=== PATIENT | female | born 1950 | race Caucasian/White ===

== ENCOUNTER 2020-08-29 15:42 | Inpatient (IN) | payer MEDICARE, OTHER ==
[~2020-08-29] VITALS: Ht 165.1 cm; Wt 52.8 kg
[2020-08-29] MEDS ORDERED: LEVO75TA4 PO (15:58)
[2020-08-29] MEDS ORDERED: QUET1TAB7 PO (15:58)
[2020-08-29] MEDS ORDERED: DIVA250T67 PO (15:58)
[2020-08-29] MEDS ORDERED: ESCI10TA2 PO (15:58)
[2020-08-29 16:36] LABS: BASO # 0.1 10^3/uL (0.0-0.2); BASO % 0.9 % (0.0-1.0); EOS # 0.1 10^3/uL (0.0-0.5); EOS % 0.7 % (0.0-3.0); HEMATOCRIT 39.1 % (36.0-47.0); HEMOGLOBIN 12.6 g/dl (12.0-15.5); LYMPH % 24.1 % (24.0-44.0); MEAN CORPUSCULAR HEMOGLOBIN 29.3 pg (27.0-33.0); MEAN CORPUSCULAR HGB CONC 32.2 g/dl (32.0-36.5); MEAN CORPUSCULAR VOLUME 90.9 fl (80.0-96.0); MONO # 0.8 10^3/uL (0.0-0.8); NEUTROPHILS # 5.3 10^3/uL (1.5-8.5); NEUTROPHILS % 64.1 % (36.0-66.0); PLATELET COUNT, AUTOMATED 321 10^3/uL (150-450); WHITE BLOOD COUNT 8.2 10^3/uL (4.0-10.0)
[2020-08-29 17:07] LABS: ALBUMIN 3.8 GM/DL (3.2-5.2); ALT/SGPT 17 U/L (12-78); BILIRUBIN,DIRECT 0.2 MG/DL (0.0-0.2); BILIRUBIN,TOTAL 0.8 MG/DL (0.2-1.0); BLOOD UREA NITROGEN 23 MG/DL (7-18); CALCIUM LEVEL 8.9 MG/DL (8.8-10.2); CARBON DIOXIDE LEVEL 31 MEQ/L (21-32); CHLORIDE LEVEL 108 MEQ/L (98-107); ETHYL ALCOHOL (ETHANOL) < 0.003 % (0.000-0.010); GLOMERULAR FILTRATION RATE > 60.0 (>39); GLUCOSE, FASTING 90 MG/DL (70-100); POTASSIUM SERUM 3.7 MEQ/L (3.5-5.1); SODIUM LEVEL 143 MEQ/L (136-145)
[2020-08-29 17:46] LABS: VALPROIC ACID (DEPAKOTE) 51.8 UG/ML (50.0-100.0)
--- NOTE | 2020-08-29 18:17 | HPEPDOC ---
[facility] Medical History & Physical Date of Admission Aug 29, 2020 Date of Service: Aug 29, 2020 History and Physical CHIEF COMPLAINT: advanced dementia HISTORY OF PRESENT ILLNESS: 69 yo F with a hx of advanced Alzheimer's dementia and hypothyroidism, was brought to ED by daughter for assistance with placement to SNF. Patient is unable to provide history due to advanced dementia; she is oriented only to person. Her daughter (Sade) is at bedside. She reports family and PCP trying for appropriate placement. She has been seen by geriatrics service in [place], Dr. Mikie Landeros. Per daughter, patient has a telephone scre ening for admission to [facility], plan was for direct admission in next few days. Today however, patient attempted to jump from a moving vehicle, and has displayed worsening aggressive behaviour toward family and even nursing staff in the ER. [facility] suggested to daughter, to bring patient to ER. Per ED staff, no bed was available at [facility]. Will admit for PFS assistance with placement. PAST MEDICAL HISTORY: 1. Advanced Alzheimer's dementia 2. Hypothyroidism PAST SURGICAL HISTORY: Reviewed with patient and family, no pertinent history identified. SOCIAL HISTORY: Patient unable to verbalize, however, daughter reports no smoking, alcohol use or illicit drug use Lives in private residence with her FAMILY HISTORY: Reviewed with patient and daughter, no pertinent history identified ALLERGIES: Please see below. REVIEW OF SYSTEMS: Complete review of systems unable to be performed as patient has advanced dementia, however, daughter reports no new complaints from mother in the last few days HOME MEDICATIONS: Please see below. PHYSICAL EXAMINATION: VITAL SIGNS: please see below General: NAD, comfortable HEENT: PERRLA, EOMI, sclerae clear Neck: supple, normal ROM, no JVD Respiratory: lungs CTAB, no wheeze, no rales, no crackles CVS: RRR, normal S1, S2, no murmurs Abdo: soft, no masses, no hepatosplenomegaly, BS+, no rebound tenderness Extremities: no edema, pulses 2+ MSK: no joint deformities, normal ROM Neuro: no focal neuro deficits, moving all 4 extremities Psych: calm, cooperative, AAO x 1 LABORATORY DATA: See below. MICROBIOLOGY: Please see below. ASSESSMENT: 69-year-old female with a history of advanced Alzheimer's dementia and hypothyroidism, admitted for social work assistance with placement to SNF. . PLAN: #Advanced Alzheimer's dementia: Sitter for concern of aggressive behaviour, elopement. Resume Seroquel 25 mg daily, depakote 250 mg BID. Check QTC. #Depression: lexapro 10 mg PO daily. #Hypothyroidism: Resume home medication. Levothyroxine 75 mcg PO daily TSH 0.8. DVT ppx: lovenox Dispo: PFS and case management consult to assist with placement. Discussed with manager social work Paco Lomeli, advised to admit as full admission. Per patient's daug hter, [facility] is completed. Initial screening, and may have a bed available very shortly. We'll request PFS assistance with plan for placement. Vital Signs Vital Signs Date Time Temp Pulse Resp B/P (MAP) Pulse Ox O2 Delivery O2 Flow Rate FiO2 08/29/20 16:36 08/29/20 15:45 98.8 69 18 98 Room Air Laboratory Data Labs 24H Laboratory Tests 2 08/29/20 16:24: Immature Granulocyte % (Auto) 0.2, Neutrophils (%) (Auto) 64.1, Lymphocytes (%) (Auto) 24.1, Monocytes (%) (Auto) 10.0H, Eosinophils (%) (Auto) 0.7, Basophils (%) (Auto) 0.9, Neutrophils # (Auto) 5.3, Lymphocytes # (Auto) 2.0, Monocytes # (Auto) 0.8, Eosinophils # (Auto) 0.1, Basophils # (Auto) 0.1, Nucleated Red Blood Cells % (auto) 0.0, Anion Gap 4L, Glomerular Filtration Rate > 60.0, Calcium Level 8.9, Total Bilirubin 0.8, Direct Bilirubin 0.2, Aspartate Amino Transf (AST/SGOT) 18, Alanine Aminotransferase (ALT/SGPT) 17, Alkaline Phosphatase 53, Total Protein 7.0, Albumin 3.8, Albumin/Globulin Ratio 1.2, Thyroid Stimulating Hormone (TSH) 0.810, Valproic Acid (Depakene) Level 51.8, Ethyl Alcohol Level < 0.003 08/29/20 17:44: CBC/BMP Laboratory Tests 08/29/20 16:24 Home Medications Scheduled Divalproex Sodium (Divalproex Sodium) 250 Mg Tablet.dr, 250 MG PO BID Escitalopram Oxalate (Escitalopram Oxalate) 10 Mg Tablet, 10 MG PO DAILY Levothyroxine Sodium (Levothyroxine Sodium) 75 Mcg Tablet, 75 MCG PO DAILY Quetiapine Fumarate (Quetiapine Fumarate) 25 Mg Tablet, 25 MG PO BID Allergies Coded Allergies: No Known Allergies (Unverified , 08/29/20) A-FIB/CHADSVASC A-FIB History Current/History of A-Fib/PAF?: No Current PO Anticoag Therapy: No ANDREIA MAE MD Aug 29, 2020 18:17
[2020-08-29] MEDS: QUEtiapine FUMARATE 25 MG TAB PO SCH (21:00)
[2020-08-29] MEDS: DIVALPROEX 250 MG TAB PO SCH (21:00)
--- NOTE | 2020-08-29 21:08 | IPNPDOC ---
Date Seen The patient was seen on 08/29/20. Progress Note MOVIE OPERATOR called re: increased agitation and worsening dementia. Pt could not be re-directed, and patient's daughter is giving consent and requests medications to calm her down. plan: prn benadryl and low dose ativan for agitation. VS, I&O, 24H, Fishbone Vital Signs/I&O Vital Signs Date Time Temp Pulse Resp B/P (MAP) Pulse Ox O2 Delivery O2 Flow Rate FiO2 08/29/20 19:56 98.6 66 18 130/72 (91) 96 Room Air Laboratory Data 24H LABS Laboratory Tests 2 08/29/20 16:24: Immature Granulocyte % (Auto) 0.2, Neutrophils (%) (Auto) 64.1, Lymphocytes (%) (Auto) 24.1, Monocytes (%) (Auto) 10.0H, Eosinophils (%) (Auto) 0.7, Basophils (%) (Auto) 0.9, Neutrophils # (Auto) 5.3, Lymphocytes # (Auto) 2.0, Monocytes # (Auto) 0.8, Eosinophils # (Auto) 0.1, Basophils # (Auto) 0.1, Nucleated Red Blood Cells % (auto) 0.0, Anion Gap 4L, Glomerular Filtration Rate > 60.0, Calcium Level 8.9, Total Bilirubin 0.8, Direct Bilirubin 0.2, Aspartate Amino Transf (AST/SGOT) 18, Alanine Aminotransferase (ALT/SGPT) 17, Alkaline Phosphatase 53, Total Protein 7.0, Albumin 3.8, Albumin/Globulin Ratio 1.2, Thyroid Stimulating Hormone (TSH) 0.810, Valproic Acid (Depakene) Level 51.8, Ethyl Alcohol Level < 0.003 08/29/20 17:44: Coronavirus (COVID-19)(PCR) NEGATIVE CBC/BMP Laboratory Tests 08/29/20 16:24 KELSEY MENDENHALL MD Aug 29, 2020 21:08
[2020-08-29] MEDS ORDERED: LORazepam 2 MG/ML VIAL IV PRN (21:15)
[2020-08-29] MEDS ORDERED: diphenhydrAMINE 50MG/ML VIAL (J1200) IV PRN ×2 (21:15)
[2020-08-29 23:05] VITALS: BP 132/66
[2020-08-29] MEDS ORDERED: LORazepam 2 MG/ML VIAL SL PRN (23:30)
[2020-08-30 06:00] VITALS: BP 130/66
[2020-08-30] MEDS: LEVOTHYROXINE 75MCG TABLET (0.075MG) PO SCH (06:18)
[2020-08-30] MEDS: QUEtiapine FUMARATE 25 MG TAB PO SCH (08:02)
[2020-08-30] MEDS: ESCITALOPRAM OXALATE 10 MG TAB (LEXAPRO) PO SCH (08:02)
[2020-08-30] MEDS: LORazepam 0.5 MG TAB PO PRN ×2 (08:02→14:26)
[2020-08-30] MEDS: diphenhydrAMINE 25MG CAP PO PRN ×2 (08:02→14:26)
[2020-08-30] MEDS: DIVALPROEX 250 MG TAB PO SCH ×2 (08:04→20:43)
[2020-08-30] MEDS: ENOXAPARIN 40MG/0.4ML SYRINGE (J1650 PER 10MG) SC SCH (09:00)
--- NOTE | 2020-08-30 11:27 | IPNPDOC ---
Date Seen The patient was seen on 08/30/20. Progress Note SUBJECTIVE: Patient was seen and examined at bedside. The patient was wandering around the hallways had difficulty being redirected. Overnight provider provided Ativan and and Benadryl prn. Patient was advanced dementia, has difficulty answering to review of systems. Does not complain of any acute issues this time OBJECTIVE PHYSICAL EXAMINATION: VITAL SIGNS: please see below General: Living independently HEENT: PERRLA, EOMI, sclerae clear Neck: supple, normal ROM, no JVD Respiratory: lungs CTAB, no wheeze, no rales, no crackles CVS: RRR, normal S1, S2, no murmurs Abdo: soft, no masses, no hepatosplenomegaly, BS+, no rebound tenderness Extremities: no edema, pulses 2+ MSK: no joint deformities, normal ROM Neuro: no focal neuro deficits, moving all 4 extremities, Psych: calm, cooperative, AAO x 1 LABORATORY DATA, IMAGING STUDIES, MICROBIOLOGY: Please see below. DVT prophylaxis ordered?: ASSESSMENT: 69-year-old female with a history of advanced Alzheimer's dementia and hypothyroidism, admitted for social work assistance with placement to SNF. . PLAN: #Advanced Alzheimer's dementia: Sitter. Resume Seroquel 25 mg daily, depakote 250 mg BID. Check QTC. EKG not performed. Contacted Dr. Landeros at [facility], tel [phone], awaiting call back. clarify dx, consider aracept. prn ativan and benadryl to use judiciously. #Depression: lexapro 10 mg PO daily. #Hypothyroidism: Resume home medication. Levothyroxine 75 mcg PO daily TSH 0.8. DVT ppx: lovenox Dispo: PFS and case management consult to assist with placement. [facility] has bed available, however require improvement in behaviour. VS, I&O, 24H, Fishbone Vital Signs/I&O Vital Signs Date Time Temp Pulse Resp B/P (MAP) Pulse Ox O2 Delivery O2 Flow Rate FiO2 08/30/20 06:00 98.0 66 16 130/66 (87) 98 Room Air I&O- Last 24 Hours up to 6 AM 08/30/20 06:00 Intake Total 350 ml Output Total 0 ml Balance 350 ml Laboratory Data 24H LABS Laboratory Tests 2 11/11/20 16:24: Immature Granulocyte % (Auto) 0.2, Neutrophils (%) (Auto) 64.1, Lymphocytes (%) (Auto) 24.1, Monocytes (%) (Auto) 10.0H, Eosinophils (%) (Auto) 0.7, Basophils (%) (Auto) 0.9, Neutrophils # (Auto) 5.3, Lymphocytes # (Auto) 2.0, Monocytes # (Auto) 0.8, Eosinophils # (Auto) 0.1, Basophils # (Auto) 0.1, Nucleated Red Blood Cells % (auto) 0.0, Anion Gap 4L, Glomerular Filtration Rate > 60.0, Calcium Level 8.9, Total Bilirubin 0.8, Direct Bilirubin 0.2, Aspartate Amino Transf (AST/SGOT) 18, Alanine Aminotransferase (ALT/SGPT) 17, Alkaline Phosphatase 53, Total Protein 7.0, Albumin 3.8, Albumin/Globulin Ratio 1.2, Thyroid Stimulating Hormone (TSH) 0.810, Valproic Acid (Depakene) Level 51.8, Ethyl Alcohol Level < 0.003 08/29/20 17:44: Coronavirus (COVID-19)(PCR) NEGATIVE CBC/BMP Laboratory Tests 08/29/20 16:24 ANDREIA MAE MD Aug 30, 2020 11:27
[2020-08-30] MEDS ORDERED: QUEtiapine FUMARATE 50 MG TAB PO ONE (18:15)
[2020-08-30] MEDS: QUEtiapine FUMARATE 50 MG TAB PO SCH (18:17)
[2020-08-31] MEDS: LEVOTHYROXINE 75MCG TABLET (0.075MG) PO SCH (06:20)
[2020-08-31 06:25] VITALS: BP 130/68
[2020-08-31] MEDS: ENOXAPARIN 40MG/0.4ML SYRINGE (J1650 PER 10MG) SC SCH (09:00)
[2020-08-31] MEDS: ESCITALOPRAM OXALATE 10 MG TAB (LEXAPRO) PO SCH (09:17)
[2020-08-31] MEDS: DIVALPROEX 250 MG TAB PO SCH (09:17)
[2020-08-31] MEDS: QUEtiapine FUMARATE 50 MG TAB PO SCH ×2 (09:17→18:14)
[2020-08-31 14:00] VITALS: BP 112/70
--- NOTE | 2020-08-31 14:04 | IPNPDOC ---
Date Seen The patient was seen on 08/31/20. Progress Note SUBJECTIVE: Patient was seen and examined at bedside this morning. Patient is pleasantly confused, walking around quarter with sitter. Patient is not a ggressive. Discussed overnight events with RN, reports patient slept well overnight without any aggressive behavior. Seroquel dose was increased to 50 mg twice a day on 08/30/2020. . She denies chest pressures breath, fevers, chills, nausea, vomiting, diarrhea. OBJECTIVE PHYSICAL EXAMINATION: VITAL SIGNS: please see below General: Living independently HEENT: PERRLA, EOMI, sclerae clear Neck: supple, normal ROM, no JVD Respiratory: lungs CTAB, no wheeze, no rales, no crackles CVS: RRR, normal S1, S2, no murmurs Abdo: soft, no masses, no hepatosplenomegaly, BS+, no rebound tenderness Extremities: no edema, pulses 2+ MSK: no joint deformities, normal ROM Neuro: no focal neuro deficits, moving all 4 extremities, Psych: calm, cooperative, AAO x 1 LABORATORY DATA, IMAGING STUDIES, MICROBIOLOGY: Please see below. DVT prophylaxis ordered?: He has, patient has refused. She is ambulating co nsistently ASSESSMENT: 69-year-old female with a history of advanced Alzheimer's dementia and hypothyroidism, admitted for social work assistance with placement to SNF. . PLAN: #Advanced Alzheimer's dementia: Sitter. Resume Seroquel 25 mg daily, depakote 250 mg BID. Check QTC. EKG not performed. Contacted Dr. Landeros at [facility], tel [phone]. . She reports patient having advanced dementia and would not benefit from Aricept. As discussed, increased seroquel to 50 mg twice a day. Patient slept well, without aggressive behaviour overnight. Once patient is ready for transfer to [facility], have the ability to increase Depakote to 500 mg at night and to 50 mg in the morning. Depression: lexapro 10 mg PO daily. #Hypothyroidism: Resumed home medication. Levothyroxine 75 mcg PO daily TSH 0.8. DVT ppx: lovenox Dispo: Patient has a bed ready at [facility]. However, due to the ongoing worsening covert outbreak and several cases they have currently halted new admissions at this time. Discussed with PFS Neda Alvarado, will seek other options outside [facility]. VS, I&O, 24H, Fishbone Vital Signs/I&O Vital Signs Date Time Temp Pulse Resp B/P (MAP) Pulse Ox O2 Delivery O2 Flow Rate FiO2 08/31/20 06:25 97.0 74 18 130/68 (88) 98 Room Air I&O- Last 24 Hours up to 6 AM 08/31/20 06:00 Intake Total 660 ml Output Total 0 ml Balance 660 ml ANDREIA MAE MD Aug 31, 2020 14:04
--- NOTE | 2020-08-31 15:30 | ECGEPIP ---
[facility] Test Date: 2020-08-30 Pat Name: SALLIE LIAO Department: Room: [place] [address] Gender: Female Contact Lens Assistant: KILEY : 1950 Requested By: ANDREIA MAE Order Number: [id number] Reading MD: Jake Ruvalcaba Measurements Intervals [place] Rate: 70 P: 65 W[place]: 167 QRS: 44 QRSD: 89 T: 62 QT: 395 QTc: 428 Interpretive Statements Normal sinus rhythm Baseline artifact Nonspecific repolarization abnormalities Comparison tracing not available Electronically Signed on 08-31-2020 15:30:26 EST by Jake Ruvalcaba
[2020-08-31] MEDS ORDERED: HALOPERIDOL 5MG/ML VIAL (J1630 PER 1) IM STA (15:59)
[2020-08-31] MEDS ORDERED: HALOPERIDOL 5MG/ML VIAL (J1630 PER 1) IV ONE (16:00)
[2020-08-31] MEDS ORDERED: HALOPERIDOL 5MG/ML VIAL (J1630 PER 1) IM ONE (18:15)
[2020-08-31] MEDS: DIVALPROEX 500 MG TAB PO SCH (20:40)
[2020-09-01 06:27] VITALS: BP 111/56
[2020-09-01] MEDS: LEVOTHYROXINE 75MCG TABLET (0.075MG) PO SCH (06:35)
[2020-09-01] MEDS: ENOXAPARIN 40MG/0.4ML SYRINGE (J1650 PER 10MG) SC SCH (09:00)
[2020-09-01] MEDS: ESCITALOPRAM OXALATE 10 MG TAB (LEXAPRO) PO SCH (09:15)
[2020-09-01] MEDS: QUEtiapine FUMARATE 50 MG TAB PO SCH ×2 (09:15→20:06)
[2020-09-01] MEDS: DIVALPROEX 250 MG TAB PO SCH (09:15)
[2020-09-01] MEDS: HALOPERIDOL 5MG/ML VIAL (J1630 PER 1) IV ONE ×2 (11:29→11:54)
[2020-09-01 20:00] VITALS: BP 127/57
[2020-09-01] MEDS: DIVALPROEX 500 MG TAB PO SCH (20:07)
[2020-09-02] MEDS: LEVOTHYROXINE 75MCG TABLET (0.075MG) PO SCH (05:54)
[2020-09-02 05:55] VITALS: BP 99/63
[2020-09-02] MEDS: ESCITALOPRAM OXALATE 10 MG TAB (LEXAPRO) PO SCH (08:39)
[2020-09-02] MEDS: DIVALPROEX 250 MG TAB PO SCH (08:39)
[2020-09-02] MEDS: QUEtiapine FUMARATE 50 MG TAB PO SCH ×2 (08:39→21:42)
[2020-09-02] MEDS: ENOXAPARIN 40MG/0.4ML SYRINGE (J1650 PER 10MG) SC SCH (08:44)
[2020-09-02] MEDS: DIVALPROEX 500 MG TAB PO SCH (21:42)
[2020-09-03] MEDS: LEVOTHYROXINE 75MCG TABLET (0.075MG) PO SCH (07:53)
[2020-09-03] MEDS: QUEtiapine FUMARATE 50 MG TAB PO SCH (12:33)
[2020-09-03] MEDS: ESCITALOPRAM OXALATE 10 MG TAB (LEXAPRO) PO SCH (12:33)
[2020-09-03] MEDS: DIVALPROEX 250 MG TAB PO SCH (12:33)
[2020-09-03] MEDS: ENOXAPARIN 40MG/0.4ML SYRINGE (J1650 PER 10MG) SC SCH (12:36)
[2020-09-03] MEDS ORDERED: DEPA1TAB3 PO (13:12)
[2020-09-03] MEDS ORDERED: QUET5TAB PO (13:12)
[2020-09-03] MEDS ORDERED: DEPA250T32 PO (13:12)
--- NOTE | 2020-09-03 13:19 | DS.PDOC ---
Discharge Summary General Date of Admission Aug 29, 2020 at 18:18 Date of Discharge 09/03/20 Attending Physician: ANDREIA MAE MD Discharge Summary PROCEDURES PERFORMED DURING STAY: None ADMITTING DIAGNOSES: 1. Advanced Alzheimer's Dementia 2. Depression 3. Hypothyroidism DISCHARGE DIAGNOSES: 1. Advanced Alzheimer's Dementia 2. Depression 3. Hypothyroidism COMPLICATIONS/CHIEF COMPLAINT: Dementia. HISTORY OF PRESENT ILLNESS: 69 yo F with a hx of advanced Alzheimer's dementia and hypothyroidism, was brought to ED by daughter for assistance with placement to SNF. Patient is unable to provide history due to advanced dementia; she is o riented only to person. Her daughter (Sade) is at bedside. She reports family and PCP trying for appropriate placement. She has been seen by geriatrics service in [place], Dr. Mikie Landeros. Per daughter, patient has a telephone screening for admission to [facility], plan was for direct admission in next few days. Today however, patient attempted to jump from a moving vehicle, and has di splayed worsening aggressive behaviour toward family and even nursing staff in the ER. [facility] suggested to daughter, to bring patient to ER. Per ED staff, no bed was available at [facility]. Will admit for PFS assistance with placement. HOSPITAL COURSE: #Advanced Alzheimer's dementia: Sitter. Resume Seroquel 25 mg daily, depakote 250 mg BID. QTc wnl. Contacted Dr. Landeros at [facility], tel [phone]. She reports patient having advanced dementia and would not benefit from Aricept. Patient did have occasional agitation which was managed with prn haldol 2 mg IM x 2. Increased seroquel to 50 mg twice a day, and increaseed Depakote to 500 mg at night and continue 250 mg in the morning. Patient's behaviour normalized, she was pleasantly confused on DC and without aggression. #Depression: lexapro 10 mg PO daily. #Hypothyroidism: Resumed home medication. Levothyroxine 75 mcg PO daily TSH 0.8. Patient discharged to the [facility] in [place], [place]. DISCHARGE MEDICATIONS: Please see below. ALLERGIES: Please see below. PHYSICAL EXAMINATION ON DISCHARGE: VITAL SIGNS: please see below General: ambulating independently HEENT: PERRLA, EOMI, sclerae clear Neck: supple, normal ROM, no JVD Respiratory: lungs CTAB, no wheeze, no rales, no crackles CVS: RRR, normal S1, S2, no murmurs Abdo: soft, no masses, no hepatosplenomegaly, BS+, no rebound tenderness Extremities: no edema, pulses 2+ MSK: no joint deformities, normal ROM Neuro: no focal neuro deficits, moving all 4 extremities, Psych: calm, cooperative, AAO x 1 LABORATORY DATA: Please see below. PROGNOSIS: fair ACTIVITY: [As tolerated]. DIET: as tolerated DISCHARGE PLAN: DC to SNF, [facility] in [place], [place]. Continue with seroquel 50 mg BID, depakote 250 mg qam and 500 mg qpm. DISCHARGE INSTRUCTIONS: 1. Please follow-up with your primary care doctor within 3-5 days 2. Please follow-up with Geriatrics service (Dr. Mikie Landeros at [facility]) within 3 weeks. 3. Please taking medications as prescribed. 4. If you develop bleeding, chest pain, shortness of breath, seizures, nausea, fevers, or otherwise worsening of your symptoms, please call 911 or return to the nearest emergency room ITEMS TO FOLLOWUP ON ON OUTPATIENT: Please repeat EKG to monitor QTc DISCHARGE CONDITION: Stable TIME SPENT ON DISCHARGE: 35 minutes Vital Signs/I&Os Vital Signs Date Time Temp Pulse Resp B/P (MAP) Pulse Ox O2 Delivery O2 Flow Rate FiO2 09/02/20 05:55 96.3 63 18 99/63 (75) 93 09/01/20 20:00 Room Air I&O- Last 24 Hours up to 6 AM 09/03/20 05:59 Intake Total 240 ml Balance 240 ml Laboratory Data Labs 24H Laboratory Tests 2 09/03/20 12:52: Discharge Medications Scheduled Divalproex Sodium (Depakote) 250 Mg Tablet.dr, 250 MG PO DAILY Divalproex Sodium (Depakote) 500 Mg Tablet.dr, 500 MG PO QHS Escitalopram Oxalate (Escitalopram Oxalate) 10 Mg Tablet, 10 MG PO DAILY, (Reported) Levothyroxine Sodium (Levothyroxine Sodium) 75 Mcg Tablet, 75 MCG PO DAILY, (Rep orted) Quetiapine Fumarate (Quetiapine Fumarate) 50 Mg Tablet, 50 MG PO BID Allergies Coded Allergies: No Known Allergies (Unverified , 08/29/20) ANDREIA MAE MD Sep 03, 2020 13:19
== END 2020-09-03 15:00 | DRG 57 ==
LOC: M ED 15:42 → M ED INP 18:18 → ENRESERV 19:14 → M MS5PR 23:21
PROVIDERS: ADMIT Family Medicine; ATTEND Family Medicine
DX: G30.9 Alzheimer's disease, unspecified (principal); E03.9 Hypothyroidism, unspecified; F32.9 Major depressive disorder, single episode, unspecified; F02.80 Dementia in other diseases classified elsewhere, unspecified severity, without behavioral disturbance, psychotic disturbance, mood disturbance, and anxiety; Z79.899 Other long term (current) drug therapy